=== PATIENT | female | born 1965 | race Caucasian/White ===

== ENCOUNTER → 2021-09-29 | Outpatient (CLI) | payer OTHER | LOC: KOH-I 14:02 | DX: M54.50 Low back pain, unspecified (principal); M25.552 Pain in left hip; M47.816 Spondylosis without myelopathy or radiculopathy, lumbar region; M16.12 Unilateral primary osteoarthritis, left hip | CPT/HCPCS: 72100; 73502 ==

== ENCOUNTER → 2021-10-22 | Outpatient (CLI) | payer OTHER | LOC: HEART 5 09:30 | DX: R00.2 Palpitations (principal); R01.1 Cardiac murmur, unspecified | CPT/HCPCS: 93306 ==

== ENCOUNTER → 2022-05-28 | Outpatient (CLI) | payer OTHER | LOC: HEART 5 04-30 08:15 | DX: I20.9 Angina pectoris, unspecified (principal); R00.2 Palpitations; I42.2 Other hypertrophic cardiomyopathy | CPT/HCPCS: 78452; A9502; J2785 ==